=== PATIENT | female | born 1970 | race African-American/Black ===

== ENCOUNTER 2019-01-10 10:50 | Emergency (ER) | payer OTHER ==
[2019-01-10 11:03] VITALS: BP 149/94
[2019-01-10] MEDS ORDERED: predniSONE 20 MG TABLET PO STA (12:37)
--- NOTE | 2019-01-10 12:39 | ED Physician Documentation ---
PD HPI SKIN - Stated complaint Stated Complaint: RASH - Chief complaint Chief Complaint: Wound - History obtained from History obtained from: Patient, Family - History of Present Illness Timing - onset: How many days ago (2-3) Timing - duration: Days (2-3) Timing - details: Gradual onset Pain level max: 0 Pain level now: 0 Location: Bodywide Quality / character: Itchy, Discolored (darkened areas), Other (dry) Improved by: Other (nothing) Worsened by (comment): COMMENT (nothing) Associated symptoms: No: Fever, Myalgias, Joint pain, Headache, Facial swelling, Dyspnea, Abd pain, N/V/D, Urinary sx Contributing factors: No: Exposed to medication, Exposed to food, Exposed to soap / lotion, Exposed to Poison sofia/oak, Insect bite /sting, Recent illness, Unknown - Additional information Additional information: visiting from the [facility]. Patient states that she lives in the [facility]. She states that when she travels away from that site, she develops these rashes. Review of Systems Constitutional: denies: Fever, Chills Respiratory: denies: Cough GI: denies: Nausea, Vomiting, Diarrhea Musculoskeletal: denies: Neck pain Neurologic: denies: Headache PD PAST MEDICAL HISTORY - Past Medical History Past Medical History: No Other Past Medical History: seasonal allergies - Past Surgical History Past Surgical History: Yes /[employer]: Hysterectomy - Present Medications Home Medications: Ambulatory Orders Medication Instructions Recorded Confirmed predniSONE [Deltasone] 10 mg PO [id number] #[id number] tab 01/10/19 - Allergies Allergies/Adverse Reactions: Allergies Allergy/AdvReac Type Severity Reaction Status Date / Time No Known Drug Allergies Allergy Verified 01/10/19 11:01 - Living Situation Living Arrangement: reports: At home - Social History Does the pt smoke?: No Smoking Status: Never smoker Does the pt drink ETOH?: No Does the pt have substance abuse?: No PD ED PE NORMAL - Vitals Vital signs reviewed: Yes - General General: Alert and oriented X 3, No acute distress - HEENT HEENT: Moist mucous membranes - Neck Neck: Supple, no meningeal sign - Cardiac Cardiac: RRR - Respiratory Respiratory: No respiratory distress, Clear bilaterally - Derm Derm: Warm and dry, Other (Scaly, dry patches of skin on the bilateral arms and bilateral thighs. No vesicles. No pustules.) - Neuro Neuro: Alert and oriented X 3 - Psych Psych: Normal mood, Normal affect Results - Vitals Vitals: Vital Signs - 24 hr 01/10/19 10:59 Temperature 36.4 C L Heart Rate 78 Respiratory 19 Rate Blood Pressure 149/94 H O2 Saturation 99 Oxygen O2 Source Room air PD MEDICAL DECISION MAKING - ED course Complexity details: considered differential, d/w patient ED course: 48-year-old female with what appears to be psoriasis. She is well-appearing, nontoxic. Afebrile. Will use lotions at home. Will place on steroids as well. Encourage UV light exposure as well. Patient counseled regarding signs and symptoms for which I believe and urgent re-evaluation would be necessary. Patient with good understanding of and agreement to plan and is comfortable going home at this time This document was made in part using voice recognition software. While efforts are made to proofread this document, sound alike and grammatical errors may occur. Departure - Departure Disposition: 01 Home, Self Care Clinical Impression: Psoriasis Condition: Good Instructions: ED Psoriasis Follow-Up: your,doctor in 1 week [Other] Prescriptions: predniSONE [Deltasone] 10 mg PO [id number] #42 tab Comments: The steroids may help clear your skin condition. You should use a good lotion. Return if you worsen. Follow-up with your doctor for further care.
== END 2019-01-10 12:49 | disposition home or self-care (01) ==
LOC: ED 10:50
DX: L40.9 Psoriasis, unspecified (principal)
CPT/HCPCS: 99282; 99284; J7512